=== PATIENT | male | born 1995 | race Caucasian/White ===

== ENCOUNTER 2017-06-18 00:58 | Inpatient (IN) | payer BC ==
[~2017-06-18] VITALS: Ht 185.4 cm; Wt 74.9 kg
[2017-06-18] VITALS (45 sets, daily range): BP systolic 99–146; BP diastolic 51–88; PULSE 88–111; TEMP 36.8–37.6; O2SAT 91–100; Ht 185.4 cm; Wt 74.9 kg
[~2017-06-18 00:58] MED LIST: CHLO5CAP19 PO; FLV1 PO; THM100 PO
[2017-06-18] MEDS ORDERED: LORAZEPAM 2 MG/ML 1 ML VIAL IM STA (01:23)
[2017-06-18] MEDS ORDERED: SODIUM CHLORIDE 0.9% 1000ML 1,000 ML IV STA ×2 (01:23→03:03)
[2017-06-18] MEDS ORDERED: HALOPERIDOL LACTATE 5 MG/ML 1 ML VIAL IM STA (01:23)
[2017-06-18] MEDS ORDERED: MIDAZOLAM HCL 5 MG/ML 1 ML VIAL IM STA ×2 (01:23)
[2017-06-18 01:40] LABS: BASO % 0.3 %; BASO ABS # 0.04 K/uL (0-0.2); EOS % 0.3 %; EOS ABS # 0.04 K/uL (0-0.5); HEMATOCRIT 42.5 % (42-52); LYMPH % 12.5 %; LYMPH ABS # 1.95 K/uL (1.2-3.4); MEAN CELL VOLUME 92.6 fL (80-100); MEAN CORPUSCULAR HEMOGLOBIN 32.7 pg (25-34); MEAN CORPUSCULAR HGB CONC 35.3 g/dl (32-36); MONO % 6.8 %; MONO ABS # 1.06 K/uL (0.11-0.59); NEUT % 78.8 %; NEUT ABS # 12.33 K/uL (1.4-6.5); PLATELET COUNT 292 K/uL (130-400); RED CELL DISTRIBUTION WIDTH CV 12.5 % (11.5-14.5); RED CELL DISTRIBUTION WIDTH SD 42.4 fL (36.4-46.3); WHITE BLOOD COUNT 15.62 K/uL (4.8-10.8)
[2017-06-18 01:57] LABS: ALBUMIN 4.3 gm/dl (3.4-5.0); ALT/SGPT 32 U/L (12-78); AST/SGOT 39 U/L (15-37); BLOOD UREA NITROGEN 11 mg/dl (7-18); CALCIUM 8.7 mg/dl (8.5-10.1); CARBON DIOXIDE 13 mmol/L (21-32); CREATININE 1.97 mg/dl (0.60-1.40); GLUCOSE 64 mg/dl (70-99); POTASSIUM 3.4 mmol/L (3.5-5.1); SODIUM 139 mmol/L (136-145)
[2017-06-18 02:08] LABS: ALKALINE PHOSPHATASE 114 U/L (45-117); TOTAL PROTEIN 8.1 gm/dl (6.4-8.2)
[2017-06-18] MEDS ORDERED: LORAZEPAM 2 MG/ML 1 ML VIAL IV STA (03:02)
[2017-06-18] MEDS ORDERED: ONDANSETRON INJ 2 MG/ML 2 ML VIAL IV PRN (03:15)
[2017-06-18] MEDS ORDERED: MAGNESIUM HYDROXIDE SUSP 30 ML UDC PO PRN (03:15)
[2017-06-18] MEDS ORDERED: ALUMINUM/MAGNESIUM/SIMETH (MAALOX MAX) 30 ML UDC PO PRN (03:15)
[2017-06-18] MEDS ORDERED: ACETAMINOPHEN 325 MG TAB PO PRN (03:15)
[2017-06-18] MEDS ORDERED: LORAZEPAM 2 MG/ML 1 ML VIAL IV PRN (03:15)
[2017-06-18] MEDS ORDERED: POLYETHYLENE (MIRALAX) 17 GM PACK PO PRN (03:15)
--- NOTE | 2017-06-18 03:18 | History and Physical ---
History & Physical Date & Time of Service: Jun 18, 2017 at 03:14 Chief Complaint: ETOH Primary Care Physician: No Doctor, Assigned History of Present Illness Source: hospital records 21 y/o M with a long-term history of ETOH abuse. The pt had been wandering the downtown in an agitated and disoriented state. An unknown republican alerted the police. The pt engaged in combat with several officers before being subdues and transported to the hospital against his will. While in the ER he remained combative and received 10mg of Midazolam and 10mg of Haldol were not entirely effective. He was placed in soft restraints. His oxygen saturation fell below 90% following a second dose of Midazolam. HIs continued agitation and borderline oxygenation lead to a decision to intubate. The pt was appropriately sedated and intubated without complication. He was placed on Propofol and transported to the ICU. He could not provide any reliable information, although he had apparently mentioned to the ER attending that he had smoked synthetic marijuana in addition to drinking alcohol and possibly snorting his Wellbutrin. Initial labs are notable for leukocytosis, SHARDA and an elevated CK. Past Medical/Surgical History 1) ETOH abuse since age 18 2) Seizures associated with ETOH withdrawal 3) History of delirium tremens 4) Depression Family History Patient reports no known family medical history. Cannot obtain Social History Per prior social history 2017: Began drinking consistently at age 18 and excessively approximately 1 year ago. Drinks at least 2 six packs of beer daily. Denied additional drug use, however, prior UDS indicated MDMA and THC use. 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 Smoking Status: Never Smoker Drug Use: marijuana, other Marital Status: single Housing status: lives with friends Occupational Status: [employer] student Allergies Coded Allergies: No Known Allergies (Unverified , 03/13/16) Home Medications Unable to Obtain Active Prescriptions or Reported Meds Review of Systems Cannot obtain Physical Exam Vital Signs Date Time Temp Pulse Resp B/P (MAP) Pulse Ox O2 Delivery O2 Flow Rate FiO2 06/18/17 02:15 109 24 107/58 98 Nasal Cannula 2.0 06/18/17 02:00 115 28 117/66 98 Nasal Cannula 2.0 06/18/17 01:45 36.6 111 28 102/48 98 Nasal Cannula 2.0 06/18/17 01:30 110 24 95/55 98 Nasal Cannula 2.0 06/18/17 01:28 112 24 116/47 97 Nasal Cannula 2.0 06/18/17 01:24 38.7 113 24 100/50 97 Room Air 06/18/17 01:17 123 24 95 Room Air 06/18/17 01:14 133 24 120/76 94 Room Air 06/18/17 01:09 142 28 95 Room Air 06/18/17 01:04 38.8 145 26 133/89 94 Room Air 06/18/17 01:04 94 06/18/17 00:58 28 Room Air General Appearance: + pertinent finding (Agitated young male who is sweating profulsely) Head: + pertinent finding (Abrasions to R side of face) Eyes: + pertinent finding (pupils are equal) Neck: + pertinent finding (No JVD - could not assess for neck stiffness) Respiratory/Chest: + pertinent finding (Could not complete a respiratory exam prior to uintubation as pt would not cooperate) Cardiovascular: regular rate, rhythm, no edema, no gallop Abdomen/GI: normal bowel sounds, non tender, soft Back: normal inspection Extremities/Musculoskelatal: normal inspection, normal capillary refill, no pedal edema Neurologic/Psych: + pertinent finding (Dosoriented, restless, combative - moving all extremities and can occasionall aswer questions) Skin: normal color Diagnostics Laboratory Results Results Past 24 Hours Test 06/18/17 01:22 06/18/17 01:26 Range/Units White Blood Count 15.62 4.8-10.8 K/uL Red Blood Count 4.59 4.7-6.1 M/uL Hemoglobin 15.0 14.0-18.0 g/dL Hematocrit 42.5 42-52 % Mean Corpuscular Volume 92.6 80-100 fL Mean Corpuscular Hemoglobin 32.7 25-34 pg Mean Corpuscular Hemoglobin Concent 35.3 32-36 g/dl Platelet Count 292 130-400 K/uL Mean Platelet Volume 10.0 7.4-10.4 fL Neutrophils (%) (Auto) 78.8 % Lymphocytes (%) (Auto) 12.5 % Monocytes (%) (Auto) 6.8 % Eosinophils (%) (Auto) 0.3 % Basophils (%) (Auto) 0.3 % Neutrophils # (Auto) 12.33 1.4-6.5 K/uL Lymphocytes # (Auto) 1.95 1.2-3.4 K/uL Monocytes # (Auto) 1.06 0.11-0.59 K/uL Eosinophils # (Auto) 0.04 0-0.5 K/uL Basophils # (Auto) 0.04 0-0.2 K/uL RDW Standard Deviation 42.4 36.4-46.3 fL RDW Coefficient of Variation 12.5 11.5-14.5 % Immature Granulocyte % (Auto) 1.3 % Immature Granulocyte # (Auto) 0.20 0.00-0.02 K/uL Sodium Level 139 136-145 mmol/L Potassium Level 3.4 3.5-5.1 mmol/L Chloride Level 104 98-107 mmol/L Carbon Dioxide Level 13 21-32 mmol/L Anion Gap 22.0 3-11 mmol/L Blood Urea Nitrogen 11 7-18 mg/dl Creatinine 1.97 0.60-1.40 mg/dl Estimated GFR () 54.3 Estimated GFR (Non- 46.9 BUN/Creatinine Ratio 5.5 10-20 Random Glucose 64 70-99 mg/dl Calcium Level 8.7 8.5-10.1 mg/dl Total Bilirubin 0.5 0.2-1 mg/dl Direct Bilirubin 0.2 0-0.2 mg/dl Aspartate Amino Transf (AST/SGOT) 39 15-37 U/L Alanine Aminotransferase (ALT/SGPT) 32 12-78 U/L Alkaline Phosphatase 114 45-117 U/L Total Creatine Kinase 560 39-308 U/L Total Protein 8.1 6.4-8.2 gm/dl Albumin 4.3 3.4-5.0 gm/dl Thyroid Stimulating Hormone (TSH) 2.290 0.300-4.500 uIu/ml Salicylates Level 3.1 2.8-20 mg/dl Acetaminophen Level < 2 10-30 ug/ml Ethyl Alcohol mg/dL 114.0 0-3 mg/dl Impression Assessment and Plan 21 y/o M with a long-term history of ETOH abuse. The pt had been wandering the downtown in an agitated and disoriented state. An unknown republican alerted the police. The pt engaged in combat with several officers before being subdues and transported to the hospital against his will. While in the ER he remained combative and received 10mg of Midazolam and 10mg of Haldol were not entirely effective. He was placed in soft restraints. His oxygen saturation fell below 90% following a second dose of Midazolam. HIs continued agitation and borderline oxygenation lead to a decision to intubate. The pt was appropriately sedated and intubated without complication. He was placed on Propofol and transported to the ICU. He could not provide any reliable information, although he had apparently mentioned to the ER attending that he had smoked synthetic marijuana in addition to drinking alcohol and possibly snorting his Wellbutrin. Initial labs are notable for leukocytosis, SHARDA and an elevated CK. 1) Intoxication/combative behavior - possibly synthetic THC in combination with ETOH - pt is sedated and intubated. IVF and PRN Ativan provided although he is sedated with Propofol. We would recommend he remain sedated for several hours due to his violent behavior and possibly evolving rhabdo. 2) ETOH abuse - history of withdrawal seizures - Currently sedated - PRN Ativan provided. IVF with Glu, Daily Thiamine and Folate ordered. 3) SHARDA - likely prerenal - IVF - repeat BMP in a few hrs 4) Elevated CK - will trend, IVF provided 5) Depression - continue Wellbutrin when awake Full code - SCDs due to trauma Total time for this admit including review of labs, meds, records - discussion with ER atttending and nurse sergeant of officers - inc critical care time - 38 min Resuscitation Status VTE Prophylaxis Will order VTE Prophylaxis: Yes
[2017-06-18] MEDS ORDERED: THIAMINE HCL 100 MG/ML 2 ML VIAL IM STA (03:20)
[2017-06-18] MEDS ORDERED: RAPID SEQUENCE INDUCTION BAG ONE (03:44)
[2017-06-18] MEDS ORDERED: PROPOFOL IV EMULSION 10 MG/ML 100 ML VIAL IV ONE ×2 (03:55→08:03)
[2017-06-18] MEDS ORDERED: THIAMINE HCL INJ 100 MG in SYRINGE 9 ML IV ONE (04:00)
[2017-06-18] MEDS ORDERED: ICU PROTOCOL FOR HYPERGLYCEMIA PRN (04:15)
--- NOTE | 2017-06-18 04:52 | Critical Care Consultation ---
Critical Care Consultation Date of Consultation: Jun 18, 2017. Attending Physician: Reason for Consultation: Delirium, acute intoxication History of Present Illness 21y/oM with hx of fdc alcohol (since age 18) and marijuana abuse, delirium tremens and alcohol withdrawal seizures admitted for delirium and acute intoxication. Pt was [place] agitated and [place]oriented in [place] and police was called. He was combative with several police officers and was brought to the hospital against his will. Pt reported snorting wellbutrin, taking a bunch of Xanax and taking synthetic marijuana. Pt was noted to be hallucinating. During ICU team interview: Pt was cooperative and not combative. He reported mild sob and expressed need for water; denied suicide attempt and reported " just wanted to relax". During intubation, asked for his dad not to be contacted as that would violate HIPPA. ED course: He remained extremely agitated/combative and was restrained with wrist and ankle restraints. Alcohol level was found to be 114. Other pertinent labs: CK 560, WBC 15.6, Cr 1.97, Bicarb 13 with AG of 22. He received Ativan 2mg x 2; Versed 5mg IM x 2; Haldol 10mg IM; 1L of NS bolus. NS was also started at 200mls/hr and switched to NS with D5 and 20meq of KCL for glucose of 64 which improved to 73 prior to D5 administration. He was intubated with etomidate , rocuronium and started on propofol sedation at 5mcg/kg/min prior to ICU transfer. Past Medical/Surgical History Hx of alcohol abuse since age 18 Delirium tremens Alcohol withdrawal seizures Marijuana abuse Family History Patient reports no known family medical history. Social History Smoking Status: Never Smoker Drug Use: marijuana, other Marital Status: single Occupation Status: [email or web address] student Allergies Coded Allergies: No Known Allergies (Unverified , 03/13/16) Home Medications Unable to Obtain Active Prescriptions or Reported Meds Current Inpatient Medications Current Inpatient Medications Medications (Trade) Dose Ordered Sig/Sophia Route Start Time Stop Time Status Last Admin Dose Admin Sodium Chloride 1,000 ml @ 200 mls/hr Q5H STAT IV 06/18/17 03:03 06/18/17 08:02 06/18/17 03:21 200 MLS/HR Acetaminophen (Tylenol Tab) 650 mg Q4H PRN PO 06/18/17 03:15 07/18/17 03:14 Al Hydrox/Mg Hydrox/Simethicone (Maalox Max Susp) 15 ml Q4H PRN PO 06/18/17 03:15 07/18/17 03:14 Magnesium Hydroxide (Milk Of Magnesia Susp) 30 ml Q12H PRN PO 06/18/17 03:15 07/18/17 03:14 Ondansetron HCl (Zofran Inj) 4 mg Q6H PRN IV 06/18/17 03:15 07/18/17 03:14 Polyethylene (Miralax Powder Packet) 17 gm DAILY PRN PO 06/18/17 03:15 07/18/17 03:14 Potassium Chloride/Dextrose/ Sod Cl 1,000 ml @ 200 mls/hr Q5H IV 06/18/17 03:15 07/18/17 03:14 UNV Lorazepam (Ativan Inj) 2 mg Q2H PRN IV 06/18/17 03:15 07/18/17 03:14 Thiamine HCl 100 mg/Syringe 10 ml @ 2 mls/min QAM IV 06/18/17 09:00 07/18/17 08:59 UNV Folic Acid 1 mg/ Syringe 10 ml @ 5 mls/min QAM IV 06/18/17 09:00 07/18/17 08:59 UNV Pantoprazole Sodium 40 mg/ Syringe 10 ml @ 5 mls/min DAILY IV 06/18/17 09:00 07/18/17 08:59 UNV Miscellaneous Information (Icu Protocol For Hyperglycemia) 1 ea PRN PRN N/A 06/18/17 04:15 06/20/17 04:14 UNV Multivitamins (Multivitamin Tab) 1 tab QAM PO 06/18/17 09:00 07/18/17 08:59 UNV Review of Systems Limited due to pt MS Constitutional: + sweats Respiratory: + shortness of breath Psychiatric: + problem reported (denied SI) Physical Exam Date Time Temp Pulse Resp B/P (MAP) Pulse Ox O2 Delivery O2 Flow Rate FiO2 06/18/17 04:02 104 20 131/75 99 Mechanical Ventilator 15.0 06/18/17 03:55 99 06/18/17 03:49 123 22 126/78 98 Nasal Cannula 2.0 06/18/17 03:30 112 24 111/73 98 Nasal Cannula 2.0 06/18/17 03:00 119 24 112/57 95 Nasal Cannula 2.0 06/18/17 02:45 116 24 115/70 97 Nasal Cannula 2.0 06/18/17 02:30 115 22 108/67 97 Nasal Cannula 2.0 06/18/17 02:15 109 24 107/58 98 Nasal Cannula 2.0 06/18/17 02:00 115 28 117/66 98 Nasal Cannula 2.0 06/18/17 01:45 36.6 111 28 102/48 98 Nasal Cannula 2.0 06/18/17 01:30 110 24 95/55 98 Nasal Cannula 2.0 06/18/17 01:28 112 24 116/47 97 Nasal Cannula 2.0 06/18/17 01:24 38.7 113 24 100/50 97 Room Air 06/18/17 01:20 125 06/18/17 01:17 123 24 95 Room Air 06/18/17 01:14 133 24 120/76 94 Room Air 06/18/17 01:09 142 28 95 Room Air 06/18/17 01:04 38.8 145 26 133/89 94 Room Air 06/18/17 01:04 94 06/18/17 00:58 28 Room Air General Appearance: other (diaphoretic, agitated, combative) Eyes: no discharge, conjunctivae normal ENT: other (crusted blood b/l nares) Neck: normal range of motion, no lymphadenopathy Respiratory: respiratory distress (excessive use of accessory muscles of respiration (chest and abdomen)), rhonchi, wheezing (diffuse), other (coarse breath sounds) Cardiovasular: normal S1S2, no murmur, other (tachycardic with regular rhythm) Abdomen: non tender, normal bowel sounds, no organomegaly Back: normal inspection Upper Extremities: no edema Lower Extremities: no edema, other (multiple abrasions on knees, legs and thigh region; b/l feet excoriation) Neuro: alert, other (hallucinating and delirius; arousable to tactile and vocal stimuli prior to sedation) Psychiatric: no suicidal ideation Laboratory Results Last 24 Hours Test 06/18/17 01:22 06/18/17 04:20 White Blood Count 15.62 K/uL Red Blood Count 4.59 M/uL Hemoglobin 15.0 g/dL Hematocrit 42.5 % Mean Corpuscular Volume 92.6 fL Mean Corpuscular Hemoglobin 32.7 pg Mean Corpuscular Hemoglobin Concent 35.3 g/dl Platelet Count 292 K/uL Mean Platelet Volume 10.0 fL Neutrophils (%) (Auto) 78.8 % Lymphocytes (%) (Auto) 12.5 % Monocytes (%) (Auto) 6.8 % Eosinophils (%) (Auto) 0.3 % Basophils (%) (Auto) 0.3 % Neutrophils # (Auto) 12.33 K/uL Lymphocytes # (Auto) 1.95 K/uL Monocytes # (Auto) 1.06 K/uL Eosinophils # (Auto) 0.04 K/uL Basophils # (Auto) 0.04 K/uL RDW Standard Deviation 42.4 fL RDW Coefficient of Variation 12.5 % Immature Granulocyte % (Auto) 1.3 % Immature Granulocyte # (Auto) 0.20 K/uL Sodium Level 139 mmol/L Potassium Level 3.4 mmol/L Chloride Level 104 mmol/L Carbon Dioxide Level 13 mmol/L Anion Gap 22.0 mmol/L Blood Urea Nitrogen 11 mg/dl Creatinine 1.97 mg/dl Estimated GFR () 54.3 Estimated GFR (Non- 46.9 BUN/Creatinine Ratio 5.5 Random Glucose 64 mg/dl Calcium Level 8.7 mg/dl Magnesium Level 3.1 mg/dl Total Bilirubin 0.5 mg/dl Direct Bilirubin 0.2 mg/dl Aspartate Amino Transf (AST/SGOT) 39 U/L Alanine Aminotransferase (ALT/SGPT) 32 U/L Alkaline Phosphatase 114 U/L Total Creatine Kinase 560 U/L Total Protein 8.1 gm/dl Albumin 4.3 gm/dl Thyroid Stimulating Hormone (TSH) 2.290 uIu/ml Salicylates Level 3.1 mg/dl Acetaminophen Level < 2 ug/ml Ethyl Alcohol mg/dL 114.0 mg/dl Assessment & Plan 21y/oM with hx of fdc alcohol (since age 18) and marijuana abuse, delirium tremens and alcohol withdrawal seizures admitted for delirium and acute intoxication: snorted Wellbutrin, took a bunch of Xanax and synthetic marijuana for relaxation. Denied suicidal ideation. Etoh level was 114. Tox screen pending. Currently sedated with propofol s/p intubation with etomidate and rocuronium and on volume control mechanical ventilation. On IVF for CK of 560. PLAN: Neuro: Pt was hallucinating and combative in the setting of acute intoxication. Currently sedated on propofol. Goal RASS score of -1 while intubated. On propofol 25 mcg/kg/min Started Versed gtt 4mg/hr Received Versed 5mg IV PAIN: tylenol 650mg Q4H PRN AGITATION: Ativan 2mg IV Q2H CV: HD stable with mild tachycardia Ordered troponin Ordered EKG Pulm: Intubated for airway protection and on mechanical ventilation CXR: concern for multiple rib fractures; read pending Concern for mixed respiratory and metabolic acidosis with AG of 22 Ordered serum Osm On VC at rate of 14, Tv of 600ml, Peep 5 and FiO2 of 40% Renal: SHARDA with Cr of 1.97; Concern for myopathy CK 560 On IVF - NS, D5 with 20 KCL at 200mls/hr Repeat PRP and CK at 0900 ID: No concern for aspiration pneumonia given lack of emesis and RLL infiltrate on CXR. WBC 15.6 with immature granulocytes and elevated neutrophils Repeat CBC this AM Empiric antibiotics not initiated at this time Endocrine: BSG 64 on BMP improved to 73 prior to D5 administration Concern for hypoglycemia On D5 with IVF Glucose checks and insulin per protocol Heme: H/H 15/42.[address] No concern for acute bleeding Electrolytes: Hypokalemia and hypermagnesemia (K 3.4 and Mag 3.1) Added 20meq KCL to IVF Repeat electrolytes at 0900 Nutrition/GI: NPO IVF NS, D5 with 20 KCL at 200mls/hr Zofran 4mg IV Q6H PRN Pantoprazole 40mg IV daily Thiamine IV Folic Acid IV Multivitamin PO IV access: peripheral only DVT prophylaxis: SCDs CCT: 60 minutes independent of any procedures Thank you for including us in the care of this patient. Please refer to Dr. Martins's addendum for further recommendations. Resident Physician Supervision Note: Dr. Bowman was resident physician during care of patient. I separately evaluated patient and did history and exam. I discussed the case with the resident and generally agree with the findings and plan. Underlying acute medical issue likely agitated delirium secondary to polysubstance abuse this time. AK I significantly improved with fluid administration, will continue repeat CPK to observe for jessa, mildly concern for increased risk of rhabdomyolysis given the history as well as positive NMDA receptor, continued checking for hyperthermia associated with NMDA use which increases risk for rhabdomyolysis. Given history of seizures secondary to alcohol withdrawal and acute alcohol intoxication will start empiric gabapentin and Librium via alcohol withdrawal protocol Patient to remain intubated at this time as he is allowed to continue to metabolize the polysubstances. I have personally spent 60 minutes of critical care time in the direct management of this patient. This is a life/limb threatening event. This includes time spent evaluating patient, direct bedside care, chart review, placing orders, interpretation of diagnostic studies, discussion with consultants, patient, and/or family members regarding treatment decisions, as well as other required patient management activities. This time is exclusive of all separately billable procedures, and teaching time and separate from and in addition to any other critical care service time. Documented By: Venu Martins DO
[2017-06-18] MEDS ORDERED: MIDAZOLAM HCL 5 MG/ML 1 ML VIAL IV STA (05:18)
[2017-06-18] MEDS ORDERED: MIDAZOLAM 125MG/250ML D5W 250 ML IV PRN (05:32)
[2017-06-18] MEDS: D5NSS + 20MEQ KCL 1,000 ML IV SCH ×2 (05:34→10:03)
[2017-06-18] MEDS ORDERED: MIDAZOLAM 125MG/250ML D5W IV ONE (05:35)
[2017-06-18] MEDS ORDERED: FENTANYL 1250MCG/250ML NSS 250 ML IV PRN (05:52)
[2017-06-18] MEDS ORDERED: FENTANYL CITRATE 1250MCG/250ML NSS ONE (05:56)
--- NOTE | 2017-06-18 05:58 | EMERGENCY ROOM VISIT NOTE ---
History Report prepared by Elijah: Danielle Madsen Under the Supervision of: Dr. Makayla Rodrigues D.O. First contact with patient: 01:11 Stated Complaint: ETOH History of Present Illness The patient is a 21 year old male who presents to the Emergency Room with complaints of an episode of alcohol overdose occurring prior to arrival. The patient states that he snorted Wellbutrin, took a bunch of Xanax, and did synthetic marijuana. The patient states that he is hallucinating. Per nursing staff, the patient was found on [facility]. She reports that upon police arrival he was fighting them by spitting, biting, and screaming profanities. She reports that it is unknown who called police in the first place. Source of History: patient, nursing staff Onset: prior to arrival Position: other (global) Quality: other (overdose) Timing: other (episode) Note: The patient complains of hallucinating. Review of Systems See HPI for pertinent positives & negatives. A total of 10 systems reviewed and were otherwise negative. Past Medical & Surgical Medical Problems: (1) Abrasion of left leg (2) Alcohol intoxication (3) Alcohol overdose (4) Combative behavior (5) Psychosis Family History Patient reports no known family medical history. Social History Smoking Status: Never Smoker Alcohol Use: heavy Drug Use: marijuana, other Marital Status: single Current/Historical Medications Unable to Obtain Active Prescriptions or Reported Meds Allergies Coded Allergies: No Known Allergies (Unverified , 03/13/16) Physical Exam Vital Signs Date Time Temp Pulse Resp B/P (MAP) Pulse Ox O2 Delivery O2 Flow Rate FiO2 06/18/17 04:02 104 20 131/75 99 Mechanical Ventilator 15.0 06/18/17 03:55 99 06/18/17 03:49 123 22 126/78 98 Nasal Cannula 2.0 06/18/17 03:30 112 24 111/73 98 Nasal Cannula 2.0 06/18/17 03:00 119 24 112/57 95 Nasal Cannula 2.0 06/18/17 02:45 116 24 115/70 97 Nasal Cannula 2.0 06/18/17 02:30 115 22 108/67 97 Nasal Cannula 2.0 06/18/17 02:15 109 24 107/58 98 Nasal Cannula 2.0 06/18/17 02:00 115 28 117/66 98 Nasal Cannula 2.0 06/18/17 01:45 36.6 111 28 102/48 98 Nasal Cannula 2.0 06/18/17 01:30 110 24 95/55 98 Nasal Cannula 2.0 06/18/17 01:28 112 24 116/47 97 Nasal Cannula 2.0 06/18/17 01:24 38.7 113 24 100/50 97 Room Air 06/18/17 01:20 125 06/18/17 01:17 123 24 95 Room Air 06/18/17 01:14 133 24 120/76 94 Room Air 06/18/17 01:09 142 28 95 Room Air 06/18/17 01:04 38.8 145 26 133/89 94 Room Air 06/18/17 01:04 94 06/18/17 00:58 28 Room Air Physical Exam General: Hallucinating, combative, agitated, fighting eight police and security guards. HEENT: Head - normocephalic. Contusion over right lateral eyebrow. Pupils are equal, round, and reactive to light. Extraocular eye muscles are intact, and sclera are anicteric. Nose - moist nasal mucosa without discharge. Powdered yellowish substance in both nares. Mouth - moist buccal mucosa. Small amount of blood coming from his mouth. Oropharynx is nonerythematous and there is no tonsillar exudate or edema noted. Neck: Supple; no JVD, nuchal rigidity, cervical lymphadenopathy. Heart: Tachycardic rate and regular rhythm. There is a normal S1 and S2 with no murmurs, clicks, or gallops appreciated. Lungs: Clear to auscultation bilaterally with no wheezes, rales, or rhonchi. Abdomen: Soft, completely nontender, nondistended, with good bowel sounds. There are no palpable pulsatile masses or hepatosplenomegaly. There is no guarding, rigidity, or rebound noted. Extremities: No evidence of cyanosis, clubbing, or edema. There are easily palpable peripheral pulses. Skin: warm with good turgor and no rashes. Diaphoretic. Back; superficial abrasions to the back Medical Decision & Procedures ER Provider Diagnostic Interpretation: CHEST X-RAY POST INTUBATION: The results were interpreted by me. Endotracheal tube is about 4 cm about the casey. Laboratory Results 06/18/17 01:22 Red Blood Count 4.59, Mean Corpuscular Volume 92.6, Mean Corpuscular Hemoglobin 32.7, Mean Corpuscular Hemoglobin Concent 35.3, Mean Platelet Volume 10.0, Neutrophils (%) (Auto) 78.8, Lymphocytes (%) (Auto) 12.5, Monocytes (%) (Auto) 6.8, Eosinophils (%) (Auto) 0.3, Basophils (%) (Auto) 0.3, Neutrophils # (Auto) 12.33, Lymphocytes # (Auto) 1.95, Monocytes # (Auto) 1.06, Eosinophils # (Auto) 0.04, Basophils # (Auto) 0.04 Test 06/18/17 01:22 06/18/17 03:35 White Blood Count 15.62 K/uL (4.8-10.8) Red Blood Count 4.59 M/uL (4.7-6.1) Hemoglobin 15.0 g/dL (14.0-18.0) Hematocrit 42.5 % (42-52) Mean Corpuscular Volume 92.6 fL (80-100) Mean Corpuscular Hemoglobin 32.7 pg (25-34) Mean Corpuscular Hemoglobin Concent 35.3 g/dl (32-36) Platelet Count 292 K/uL (130-400) Mean Platelet Volume 10.0 fL (7.4-10.4) Neutrophils (%) (Auto) 78.8 % Lymphocytes (%) (Auto) 12.5 % Monocytes (%) (Auto) 6.8 % Eosinophils (%) (Auto) 0.3 % Basophils (%) (Auto) 0.3 % Neutrophils # (Auto) 12.33 K/uL (1.4-6.5) Lymphocytes # (Auto) 1.95 K/uL (1.2-3.4) Monocytes # (Auto) 1.06 K/uL (0.11-0.59) Eosinophils # (Auto) 0.04 K/uL (0-0.5) Basophils # (Auto) 0.04 K/uL (0-0.2) RDW Standard Deviation 42.4 fL (36.4-46.3) RDW Coefficient of Variation 12.5 % (11.5-14.5) Immature Granulocyte % (Auto) 1.3 % Immature Granulocyte # (Auto) 0.20 K/uL (0.00-0.02) Magnesium Level 3.1 mg/dl (1.8-2.4) Direct Bilirubin 0.2 mg/dl (0-0.2) Thyroid Stimulating Hormone (TSH) 2.290 uIu/ml (0.300-4.500) Salicylates Level 3.1 mg/dl (2.8-20) Acetaminophen Level < 2 ug/ml (10-30) Ethyl Alcohol mg/dL 114.0 mg/dl (0-3) Bedside Glucose 73 mg/dl (70-99) Laboratory results per my review. Medications Administered Medications (Trade) Dose Ordered Sig/Sophia Route Start Time Stop Time Status Last Admin Dose Admin Sodium Chloride 1,000 ml @ 999 mls/hr Q1H1M STAT IV 06/18/17 01:23 06/18/17 02:23 DC 06/18/17 02:14 999 MLS/HR Lorazepam (Ativan Inj) 2 mg NOW STAT IM 06/18/17 01:23 06/18/17 01:27 DC 06/18/17 02:15 2 MG Haloperidol Lactate (Haldol Inj) 10 mg NOW STAT IM 06/18/17 01:23 06/18/17 01:27 DC 06/18/17 02:16 10 MG Midazolam HCl (Versed Inj) 5 mg NOW STAT IM 06/18/17 01:23 06/18/17 01:27 DC 06/18/17 02:17 5 MG Midazolam HCl (Versed Inj) 5 mg NOW STAT IM 06/18/17 01:23 06/18/17 01:27 DC 06/18/17 02:17 5 MG Lorazepam (Ativan Inj) 2 mg NOW STAT IV 06/18/17 03:02 06/18/17 03:04 DC 06/18/17 03:21 2 MG Sodium Chloride 1,000 ml @ 200 mls/hr Q5H STAT IV 06/18/17 03:03 06/18/17 05:31 DC 06/18/17 03:21 200 MLS/HR Thiamine HCl 100 mg/Syringe 10 ml @ 2 mls/min NOW ONCE IV 06/18/17 04:00 06/18/17 04:04 DC 06/18/17 04:00 2 MLS/MIN Propofol (Diprivan Iv Emulsion 100ml Vial) 1 dose STK-MED ONCE IV 06/18/17 03:55 06/18/17 03:56 DC 06/18/17 03:58 1 DOSE Procedure 0058: Ordered Haldol Inj 10 mg IM. 0100: Ordered Ativan Inj 2 mg IM. 0104: Ordered Versed Inj 5 mg IM. 0111: Ordered Versed 5 mg IM. 0123: Ordered NSS 1000 ml @ 999 mls/hr IV. 0302: Ordered Ativan Inj 2 mg IV. 0345: Ordered Etomidate 30 mg IV, Rocuronium 70 mg IV. 0355: Ordered Propofol Drip 1 dose IV. Endotracheal Intubation Indication: Altered Metal Status The patient was on a nasal cannula prior to the procedure. Suction, airway equipment, RSI drugs, respiratory equipment, and appropriate personnel were prepared prior to the initiation of the procedure. A time out was taken. Induction was performed with 30 mg Etomidate and 70 mg Rocuronium. After observing the clinical benefit of the medications, the airway was easily visualized utilizing a glide scope. A 7.5 size ETT tube was placed atraumatically to 24 cm using standard technique. The cuff inflated without signs of malfunction. There were bilateral breath sounds, positive colormetric change, no gastric sounds, a good capnography waveform, and post procedure pulse oximetry was 100%. Post intubation sedation and paralysis was administered using Propofol. There were no complications. ED Course 0055: Past medical records reviewed. The patient was evaluated in room A12B. A complete history and physical exam was performed. Upon my initial evaluation of the patient, he was being restrained by 8 security guards and police officers. He was combative, agitated and screaming expletives. 0057: Four-point leather restraints were placed on the patient 0058: Ordered Haldol Inj 10 mg IM. The patient continued to struggle and appear to be suffering from excited delirium. We were finally able to attach a pulse oximeter cord and pallet repairer leads. 0100: Ordered Ativan Inj 2 mg IM. 0104: The patient seemed only slightly more relaxed and still was a danger to himself and others. I ordered Versed Inj 5 mg IM. 0111: Once again, the patient was extremely agitated and struggling against his restraints and with security. I ordered Versed 5 mg IM. We are finally able to get a blood pressure and rectal temperature. The patient was hyperthermic. 0123: Ordered NSS 1000 ml @ 999 mls/hr IV. 0205: The patient was somewhat sedated at this time. He was protecting his own airway 0302: Nursing staff made me aware that the patient was becoming agitated again. I ordered Ativan Inj 2 mg IV. 0303: I discussed the patient's case with Elena NUGENT Market Research Analyst. 0324: Discussed the patient's case with Dr. Cherelle JOHNSON Hospitalist. The patient will be evaluated for further management. 0345: The patient was evaluated by the hospitalist and the PA from the ICU and they requested that the patient be sedated and intubated. Ordered Etomidate 30 mg IV, Rocuronium 70 mg IV. 0355: Ordered Propofol Drip 1 dose IV. Medical Decision The patient is a 21 year old male who presents to the Emergency Room with complaints of an episode of alcohol overdose with severe agitation occurring prior to arrival. Differential diagnoses include alcohol intoxication, drug overdose, hypoglycemia , head injury, excited delirium, malignant hyperthermia. LABS: Salicylate level 3.1 Tylenol less than 2 Alcohol 114 Total CKA 560 TSH 2.2 Glucose 64 Creatine 1.9 White count 15.6 Stable H&H This is a 21-year-old male patient presents to the emergency department initially thought to be an alcohol overdose. He then went on to explain that he use synthetic marijuana and snorted Wellbutrin and took Xanax. The patient had severe combativeness and agitation. His presentation was consistent with excited delirium. Patient received multiple sedatives along with Haldol and had no significant improvement in his symptoms for quite some time. He did seem to calm down for a short period of time but then was struggling against restraints. At that point, he was becoming more agitated and the decision was made to sedate him and placed him on a ventilator for ICU admission. Medication Reconcilliation Current Medication List: was personally reviewed by me Blood Pressure Screening Patient's blood pressure: Normal blood pressure Will be further monitored by the hospitalist. Consults Time Called: [phone] Consulting Physician: Elena NUGENT Market Research Analyst Returned Call: [phone] I discussed the patient's case with Elena NUGENT Market Research Analyst. Additional Consults: Time Called: 030 Consulted Physician: Dr. Cherelle JOHNSON Hospitalist Returned Call: [phone] Additional Comments: Discussed the patient's case with Dr. Cherelle Castro [facility] Hospitalist. The patient will be evaluated for further management. Impression Primary Impression: Polysubstance abuse Additional Impression: Delirium Critical Care I have personally spent greater than 120 minutes of critical care time in the direct management of this patient. This includes bedside care, interpretation of diagnostic studies, and testing, discussion with consultants, patient, and family members, and other required patient management activities. This 120 minutes is in excess of all separately billable procedures. Scribe Attestation The scribe's documentation has been prepared under my direction and personally reviewed by me in its entirety. I confirm that the note above accurately reflects all work, treatment, procedures, and medical decision making performed by me. Departure Information Dispostion Being Evaluated By Hospitalist Prescriptions Unable to Obtain Active Prescriptions or Reported Meds Referrals No Doctor, Assigned (PCP) Problem Qualifiers
[2017-06-18 06:09] LABS: ALBUMIN 3.7 gm/dl (3.4-5.0); ALT/SGPT 36 U/L (12-78); AST/SGOT 78 U/L (15-37); BLOOD UREA NITROGEN 14 mg/dl (7-18); CALCIUM 7.9 mg/dl (8.5-10.1); CARBON DIOXIDE 20 mmol/L (21-32); GLUCOSE 92 mg/dl (70-99); POTASSIUM 3.6 mmol/L (3.5-5.1); SODIUM 140 mmol/L (136-145)
[2017-06-18 06:25] LABS: ALKALINE PHOSPHATASE 90 U/L (45-117); PHOSPHORUS 4.8 mg/dl (2.5-4.9); TOTAL PROTEIN 6.6 gm/dl (6.4-8.2)
--- NOTE | 2017-06-18 07:32 | DIAGNOSTIC IMAGING REPORT ---
CHEST ONE VIEW PORTABLE HISTORY: 21 years-old Male ET tube placement acute respiratory failure COMPARISON: None available TECHNIQUE: Portable AP view of the chest FINDINGS: Endotracheal tube overlies the midline terminating 6.7 cm superior to the casey. Enteric tube courses below the diaphragm terminating within the left upper abdomen within the region of the gastric fundus. Cardiomediastinal and hilar silhouettes are within normal limits. There is no pneumothorax, pleural effusion, focal airspace consolidation or overt pulmonary edema. Bones of the chest appear grossly intact. IMPRESSION: Satisfactory positioning of endotracheal and enteric tubes as above. The above report was generated using voice recognition software. It may contain grammatical, syntax or spelling errors. Electronically signed by: Danyel Gross M.D. 06/18/2017 7:30 AM Dictated Date/Time: 06/18/2017 7:28 AM
[2017-06-18] MEDS: MULTIVITAMIN TAB PO SCH (07:47)
[2017-06-18] MEDS ORDERED: INFLUENZA VIRUS QUAD VACCINE 0.5 ML SYR IM. ONE (08:00)
[2017-06-18] MEDS ORDERED: INFLUENZA ADMINISTRATION CHARGE ONE (08:00)
[2017-06-18] MEDS: FoLIC ACID INJ 1 MG in SYRINGE 9.8 ML IV SCH (08:08)
[2017-06-18] MEDS ORDERED: PROPOFOL IV EMULSION 10 MG/ML 100 ML VIAL IV PRN (08:58)
[2017-06-18 09:18] LABS: BASO % 0.1 %; BASO ABS # 0.01 K/uL (0-0.2); EOS % 0.5 %; EOS ABS # 0.07 K/uL (0-0.5); HEMATOCRIT 34.6 % (42-52); HEMOGLOBIN 12.1 g/dL (14.0-18.0); IG# 0.06 K/uL (0.00-0.02); LYMPH % 20.7 %; LYMPH ABS # 2.96 K/uL (1.2-3.4); MEAN CELL VOLUME 92.3 fL (80-100); MEAN CORPUSCULAR HEMOGLOBIN 32.3 pg (25-34); MEAN PLATELET VOLUME 9.7 fL (7.4-10.4); MONO % 14.4 %; MONO ABS # 2.07 K/uL (0.11-0.59); NEUT % 63.9 %; NEUT ABS # 9.16 K/uL (1.4-6.5); PLATELET COUNT 184 K/uL (130-400); RED CELL DISTRIBUTION WIDTH CV 12.7 % (11.5-14.5); RED CELL DISTRIBUTION WIDTH SD 42.8 fL (36.4-46.3); WHITE BLOOD COUNT 14.33 K/uL (4.8-10.8)
[2017-06-18] MEDS ORDERED: GABAPENTIN 600 MG TAB PO SCH (10:00)
[2017-06-18] MEDS ORDERED: CHLORDIAZEPOXIDE 25 MG CAP PO SCH (10:00)
[2017-06-18] MEDS ORDERED: PANTOprazole INJ 40 MG in SYRINGE 0 ML IV SCH (11:00)
[2017-06-18] MEDS: CHLORDIAZEPOXIDE 50MG 1ST DOSE PO SCH ×3 (11:09→21:40)
--- NOTE | 2017-06-18 11:47 | Progress Note ---
Subjective Date of Service: Jun 18, 2017. Subjective Pt evaluation today including: conversation w/ patient, physical exam, chart review, lab review, review of studies, conversation w/ it solutions sales consultant, review of inpatient medication list Intubated, on IV fluid, sedation, afebrile, good urine output, not on NG tube feeding Problem List Medical Problems: (1) Alcohol withdrawal Status: Acute (2) Alcoholic intoxication Status: Acute (3) Alcoholic intoxication Status: Acute (4) Buttock abrasion Status: Acute (5) Delirium Status: Acute (6) Head injury Status: Acute (7) Leg abrasion Status: Acute (8) Polysubstance abuse Status: Acute (9) Polysubstance abuse Status: Acute (10) Tremor Status: Acute Review of Systems Constitutional: + problem reported (Not able to obtain because of sedated on the vent) Objective Vital Signs Date Time Temp Pulse Resp B/P (MAP) Pulse Ox O2 Delivery O2 Flow Rate FiO2 06/18/17 11:30 40 06/18/17 10:00 37.2 90 17 128/59 (82) 97 Mechanical Ventilator 50 06/18/17 08:00 96 Mechanical Ventilator 50 06/18/17 08:00 40 06/18/17 07:54 40 06/18/17 07:30 37.1 94 17 115/55 (75) 97 Mechanical Ventilator 50 06/18/17 05:58 98 17 102/51 (68) 97 06/18/17 05:54 40 06/18/17 05:47 105 0 116/69 (85) 95 06/18/17 05:31 99 15 114/59 (77) 97 06/18/17 05:30 99 16 97 06/18/17 05:17 104 21 137/87 (104) 97 06/18/17 05:04 36.8 98 18 136/82 98 Mechanical Ventilator 40 06/18/17 05:01 93 16 136/82 (100) 98 06/18/17 04:55 101 134/88 (103) 99 06/18/17 04:31 91 146/87 (106) 100 06/18/17 04:30 94 15 100 06/18/17 04:02 104 20 131/75 99 Mechanical Ventilator 15.0 06/18/17 03:55 99 06/18/17 03:49 123 22 126/78 98 Nasal Cannula 2.0 06/18/17 03:30 112 24 111/73 98 Nasal Cannula 2.0 06/18/17 03:00 119 24 112/57 95 Nasal Cannula 2.0 06/18/17 02:45 116 24 115/70 97 Nasal Cannula 2.0 06/18/17 02:30 115 22 108/67 97 Nasal Cannula 2.0 06/18/17 02:15 109 24 107/58 98 Nasal Cannula 2.0 06/18/17 02:00 115 28 117/66 98 Nasal Cannula 2.0 06/18/17 01:45 36.6 111 28 102/48 98 Nasal Cannula 2.0 06/18/17 01:30 110 24 95/55 98 Nasal Cannula 2.0 06/18/17 01:28 112 24 116/47 97 Nasal Cannula 2.0 06/18/17 01:24 38.7 113 24 100/50 97 Room Air 06/18/17 01:20 125 06/18/17 01:17 123 24 95 Room Air 06/18/17 01:14 133 24 120/76 94 Room Air 06/18/17 01:09 142 28 95 Room Air 06/18/17 01:04 38.8 145 26 133/89 94 Room Air 06/18/17 01:04 94 06/18/17 00:58 28 Room Air Physical Exam General Appearance: + pertinent finding (Intubated) Eyes: PERRL ENT: normal ENT inspection Neck: supple, + pertinent finding (Intubated) Respiratory/Chest: + decreased breath sounds, + rales Cardiovascular: regular rate, rhythm, no edema, no gallop, no JVD, no murmur Abdomen: normal bowel sounds, non tender, soft, no pulsatile mass Extremities: normal inspection, no pedal edema Neurologic/Psychiatric: + pertinent finding (Intubated not able to evaluation, no facial droop) Skin: normal color, warm/dry Laboratory Results Last 24 Hours Test 06/18/17 01:22 06/18/17 03:35 06/18/17 04:20 06/18/17 05:28 White Blood Count 15.62 K/uL Red Blood Count 4.59 M/uL Hemoglobin 15.0 g/dL Hematocrit 42.5 % Mean Corpuscular Volume 92.6 fL Mean Corpuscular Hemoglobin 32.7 pg Mean Corpuscular Hemoglobin Concent 35.3 g/dl Platelet Count 292 K/uL Mean Platelet Volume 10.0 fL Neutrophils (%) (Auto) 78.8 % Lymphocytes (%) (Auto) 12.5 % Monocytes (%) (Auto) 6.8 % Eosinophils (%) (Auto) 0.3 % Basophils (%) (Auto) 0.3 % Neutrophils # (Auto) 12.33 K/uL Lymphocytes # (Auto) 1.95 K/uL Monocytes # (Auto) 1.06 K/uL Eosinophils # (Auto) 0.04 K/uL Basophils # (Auto) 0.04 K/uL RDW Standard Deviation 42.4 fL RDW Coefficient of Variation 12.5 % Immature Granulocyte % (Auto) 1.3 % Immature Granulocyte # (Auto) 0.20 K/uL Sodium Level 139 mmol/L 140 mmol/L Potassium Level 3.4 mmol/L 3.6 mmol/L Chloride Level 104 mmol/L 110 mmol/L Carbon Dioxide Level 13 mmol/L 20 mmol/L Anion Gap 22.0 mmol/L 10.0 mmol/L Blood Urea Nitrogen 11 mg/dl 14 mg/dl Creatinine 1.97 mg/dl 1.10 mg/dl Estimated GFR () 54.3 109.9 Estimated GFR (Non- 46.9 94.8 BUN/Creatinine Ratio 5.5 12.6 Random Glucose 64 mg/dl 92 mg/dl Calcium Level 8.7 mg/dl 7.9 mg/dl Magnesium Level 3.1 mg/dl Total Bilirubin 0.5 mg/dl 0.8 mg/dl Direct Bilirubin 0.2 mg/dl Aspartate Amino Transf (AST/SGOT) 39 U/L 78 U/L Alanine Aminotransferase (ALT/SGPT) 32 U/L 36 U/L Alkaline Phosphatase 114 U/L 90 U/L Total Creatine Kinase 560 U/L 2611 U/L Total Protein 8.1 gm/dl 6.6 gm/dl Albumin 4.3 gm/dl 3.7 gm/dl Thyroid Stimulating Hormone (TSH) 2.290 uIu/ml Salicylates Level 3.1 mg/dl Acetaminophen Level < 2 ug/ml Ethyl Alcohol mg/dL 114.0 mg/dl Bedside Glucose 73 mg/dl Urine Opiates Screen NEG Urine Methadone, Qualitative NEG Urine Barbiturates NEG Urine Phencyclidine (PCP) Level POS Ur Amphetamine/Methamphetamine POS MDMA (Ecstasy) Screen POS Urine Benzodiazepines Screen POS Urine Cocaine Metabolite NEG Urine Marijuana (THC) NEG Est Creatinine Clear Calc Drug Dose 107.9 ml/min Osmolality 296 mOsm/kg Phosphorus Level 4.8 mg/dl Troponin I < 0.015 ng/ml Globulin 2.9 gm/dl Albumin/Globulin Ratio 1.3 Test 06/18/17 06:17 06/18/17 08:56 06/18/17 11:20 Blood Gas Sample Site R Brachial Bedside Blood Gas pH (LAB) 7.36 Bedside Blood Gas pCO2 (LAB) 41 mmHg Bedside Blood Gas pO2 (LAB) 140 mmHg Bedside Blood Gas HCO3 (LAB) 23 meq/L Bedside Blood Gas Total CO2 24 mEq/l Bedside Blood Gas Base Excess (LAB) -2.0 meq/L Bedside Blood Gas O2 Saturation 99.0 % Amos Test Pass Oxygen Delivery Device Ventilator Bedside Oxygen Rate (breaths/min) 14 Blood Gas Minute Ventilation 9.7 Bedside FiO2 40 % Blood Gas Tidal Volume 600 Blood Gas PEEP 5 White Blood Count 14.33 K/uL Red Blood Count 3.75 M/uL Hemoglobin 12.1 g/dL Hematocrit 34.6 % Mean Corpuscular Volume 92.3 fL Mean Corpuscular Hemoglobin 32.3 pg Mean Corpuscular Hemoglobin Concent 35.0 g/dl Platelet Count 184 K/uL Mean Platelet Volume 9.7 fL Neutrophils (%) (Auto) 63.9 % Lymphocytes (%) (Auto) 20.7 % Monocytes (%) (Auto) 14.4 % Eosinophils (%) (Auto) 0.5 % Basophils (%) (Auto) 0.1 % Neutrophils # (Auto) 9.16 K/uL Lymphocytes # (Auto) 2.96 K/uL Monocytes # (Auto) 2.07 K/uL Eosinophils # (Auto) 0.07 K/uL Basophils # (Auto) 0.01 K/uL RDW Standard Deviation 42.8 fL RDW Coefficient of Variation 12.7 % Immature Granulocyte % (Auto) 0.4 % Immature Granulocyte # (Auto) 0.06 K/uL Magnesium Level 2.6 mg/dl Bedside Glucose 115 mg/dl Assessment and Plan 21 y/o M admitted to ICU on June 18, 2017 because of Intoxication/combative behavior with a long-term history of ETOH abuse. per note: he had been wandering the [place] in an agitated and disoriented state. In the ER he remained combative and received 10mg of Midazolam and 10mg of Haldol were not entirely effective, oxygen saturation fell below 90% following a second dose of Midazolam, hIs continued agitation and borderline low oxygenation lead to a decision to intubate. Intoxication/combative behavior, now is intubated, Illicit drug abuse disorder with multiple illicit drug and positive screen: possibly synthetic THC hx ETOH abuse and alcohol intoxication upon admission, history of withdrawal seizures - Currently sedated - PRN Ativan provided Continue IV fluid, multiple vitamin, thiamine, folic acid, Currently intubated on vent support Acute kidney failure upon admission, which improved after IV fluid, Hypokalemia was replaced Elevated CK, from dehydration from the hospital, which is getting worse this morning, will continue follow-up total CK level Depression: We will continue Wellbutrin when awake Will continue vent support, IV fluids, supportive care, follow-up above- mentioned labs, may need psychiatry evaluation before discharge Full code -no hyperkeratotic, only SCDs due to trauma Continued [facility] stay due to: multiple IV medications needed Discharge planning: uncertain
[2017-06-18] MEDS ORDERED: GABAPENTIN 1200MG LOADING DOSE NG ONE (12:00)
--- NOTE | 2017-06-18 13:46 | Critical Care Progress Note ---
Critical Care Progress Note Date of Service Jun 18, 2017. Critical Care Progress Note Patient ready for extubation, following complex commands, lives at above bed, spontaneous minute ventilation 10 L tidal volume greater than 10 cc/kg.
[2017-06-18] MEDS ORDERED: DexMEDEtomidine HCL IV 200 MCG in SODIUM CHLORIDE 0.9% 50ML 48 ML IV PRN (15:05)
--- NOTE | 2017-06-18 15:23 | Critical Care Progress Note ---
Critical Care Progress Note Date of Service Jun 18, 2017. Critical Care Progress Note Notified by nursing staff that patient purposely removed his Serna with balloon intact. I asked him why he pulled his catheter out "I felt it was prudent to remove it" when asking the follow-up question if he still thought it was prudent after seeing the balloon that was still inflated on the end his response was "yeah it hurt, it felt like I was giving through my jarrod" I interviewed the patient and examined him. He is alert and oriented 3 Aware he is in the hospital. Understands he may have injured his urethra secondary to pulling out the catheter. Rather ambivalent about the possibility of serious injury. He is mildly tachycardic. He has normal external circumcised genitalia with mild bleeding and oozing at the urethral meatus. Impression: Possible urethral injury secondary to patient's self removal. Plan: If the patient is unable to urinate we will attempt to place another Serna catheter. If unable to will place an urgent consult to urology. Will likely require routine consult with urology tomorrow.
[2017-06-18] MEDS: GABAPENTIN 600MG Q6H DOSE NG SCH (17:58)
[2017-06-19] VITALS (9 sets, daily range): BP systolic 97–133; BP diastolic 47–71; PULSE 61–87; TEMP 36.6–37; O2SAT 97–100
[2017-06-19] MEDS: GABAPENTIN 600MG Q6H DOSE NG SCH
[2017-06-19 05:52] LABS: BASO % 0.2 %; BASO ABS # 0.02 K/uL (0-0.2); EOS % 1.6 %; EOS ABS # 0.19 K/uL (0-0.5); HEMATOCRIT 33.9 % (42-52); HEMOGLOBIN 11.6 g/dL (14.0-18.0); IG# 0.02 K/uL (0.00-0.02); LYMPH % 17.1 %; LYMPH ABS # 1.98 K/uL (1.2-3.4); MEAN CELL VOLUME 94.4 fL (80-100); MEAN CORPUSCULAR HEMOGLOBIN 32.3 pg (25-34); MEAN CORPUSCULAR HGB CONC 34.2 g/dl (32-36); MEAN PLATELET VOLUME 9.6 fL (7.4-10.4); MONO % 11.5 %; MONO ABS # 1.33 K/uL (0.11-0.59); NEUT % 69.4 %; NEUT ABS # 8.01 K/uL (1.4-6.5); PLATELET COUNT 166 K/uL (130-400); RED CELL DISTRIBUTION WIDTH CV 12.7 % (11.5-14.5); RED CELL DISTRIBUTION WIDTH SD 43.5 fL (36.4-46.3); WHITE BLOOD COUNT 11.55 K/uL (4.8-10.8)
[2017-06-19] MEDS: CHLORDIAZEPOXIDE 50MG 1ST DOSE PO SCH (06:00)
[2017-06-19 06:20] LABS: ALBUMIN 3.3 gm/dl (3.4-5.0); CALCIUM 8.3 mg/dl (8.5-10.1); CREATININE 0.94 mg/dl (0.60-1.40); POTASSIUM 3.7 mmol/L (3.5-5.1)
[2017-06-19 06:42] LABS: PHOSPHORUS 4.1 mg/dl (2.5-4.9); TOTAL PROTEIN 5.9 gm/dl (6.4-8.2)
[2017-06-19] MEDS ORDERED: GABAPENTIN 600MG Q8H DOSE NG SCH (08:00)
[2017-06-19] MEDS: FoLIC ACID INJ 1 MG in SYRINGE 9.8 ML IV SCH (08:55)
[2017-06-19] MEDS: MULTIVITAMIN TAB PO SCH (08:55)
[2017-06-19] MEDS ORDERED: THIAMINE HCL INJ 100 MG in SYRINGE 9 ML IV SCH (09:00)
[2017-06-19] MEDS ORDERED: PANTOprazole SOD 40 MG TAB PO SCH (09:00)
[2017-06-19] MEDS ORDERED: THIAMINE HCL 100 MG TAB PO SCH (09:00)
--- NOTE | 2017-06-19 09:23 | Clinical Documentation Query ---
CLINICAL DOCUMENTATION QUERY 21 year old male who presents to the Emergency Room hallucinating and combative. In your clinical opinion is this patient being managed for: ( x) Toxic encephalopathy in setting of polysubstance abuse. ( ) Not Agree ( ) Other explanation of clinical findings (Please Explain) ( ) Unable to determine (Please Define) ( ) Need to Discuss The medical record reflects the following clinical findings, treatment, and risk factors. Clinical Indicators: As above. Tox screen +Urine for PCP, Amphetamin/Meth, MDMA, and Benzodiazepines. ETOH 114. Treatment: Sedated and intubated for safety, ICU hemodynamic monitoring. Risk Factors: Polysubstance abuse Please clarify and document your clinical opinion in the progress notes and discharge summary. Terms such as "probable", "suspected", "likely", "questionable", "possible", or "still to be ruled out" are acceptable. IF IN AGREEMENT, YOU MUST DOCUMENT ABOVE DIAGNOSTIC STATEMENT IN DAILY PROGRESS NOTES AND DISCHARGE SUMMARY. This document is not part of the patient's record. Thank You, Carlos A Paez, EDMUNDO [phone]
--- NOTE | 2017-06-19 13:02 | Psychiatric Consultation ---
Psychiatric Consultation Date of Service: Jun 19, 2017. ID: Patient reviewed with liaison nurse. Pt record reviewed. 21-year-old male reportedly was brought to ED by police after being found in an agitated and disoriented state. Pt was combative both with the police and once brought to the ED. Pt was intubated and sedated and transported to ICU to prevent potential harm to self or others. Pt has a history of ETOH abuse since age 18. Psychiatric consult requested for "recurrent substance abuse, life threatening ". CC: "I tripped and fell, next thing I knew the character artist had me." HPI: Salo Oconnor is a 21-year-old male admitted to the ICU following police escort to the ED for "agitated and disoriented state". Pt was combative in the ED, but has since calmed down. Pt was seen on psychiatric consult service for "recurrent substance abuse, life threatening". Pt denies any substance use prior to coming to the hospital; however, emergency room visit notes states, "patient states he snorted Wellbutrin, took a bunch of Xanax , and did synthetic marijuana." Pt's BAL at presentation to the ED was 114. Tox screen positive for PCP, amphetamine, MDMA, and Benzos - relatively consistent with patient's earlier statement. Pt is unable to remember any events from the evening until he was tackled by police. At beginning of encounter, patient was rather lethargic and required frequent arousal to continue with interview. Pt reports to this provider that he felt he was to be taking Wellbutrin 300mg BID to "stay awake" as these moments of sedation have been happening often. Pt suddenly becomes alert and oriented retirement through encounter without any signs of sedation, speech much more clear. Pt denies suicide attempt by overdose, as he thought this was the dose discussed by his provider at [facility]. Pt does have a recorded substance abuse history, which he does not discuss with this provider. He does however admit to weekly therapy session with Severo Harkins, his D&A counselor. He denies interest in inpatient rehabilitation. Pt's language is very future oriented stating, "If it was a suicide attempt, I would absolutely tell you. I would need help then, because I really don't want to ." He states he would like to be discharged as he needs to finish homework for his classes. Pt reports he currently has "all As" this semester. Pt's substance abuse history is concerning; however, he is not reporting symptoms that would allow for inpatient commitment for mental health treatment. Pt denies depression or anxiety and states sleep is his only current concern. Pt denies SI/HI, A/V hallucinations, and other psychosis. Pt states he is not willing for voluntary admission to the mental health unit and would like to return home to "comfort my girlfriend and get some work done." Vital Signs - Last 24 hours: Date Time Temp Pulse Resp B/P (MAP) Pulse Ox O2 Delivery O2 Flow Rate FiO2 06/19/17 11:12 36.6 61 18 131/71 (91) 97 Room Air 06/19/17 11:11 Room Air 06/19/17 09:33 36.6 68 18 111/67 (82) 97 Room Air 06/19/17 07:30 Room Air 06/19/17 07:30 36.6 82 18 97/47 (64) 97 Room Air 06/19/17 06:00 36.8 61 16 118/64 (82) 99 Room Air 06/19/17 04:00 37.0 87 18 133/58 (83) 98 Room Air 06/19/17 04:00 98 Room Air 06/19/17 02:00 81 16 110/58 (75) 98 Room Air 06/19/17 00:01 72 16 129/53 (78) 100 Room Air 06/19/17 00:00 97 Room Air 06/18/17 22:00 89 16 126/58 (80) 95 Room Air 06/18/17 20:00 91 16 131/69 (89) 99 Nasal Cannula 2.0 06/18/17 20:00 100 Nasal Cannula 2.0 06/18/17 18:01 96 99/74 (82) 98 06/18/17 18:00 97 97 06/18/17 17:59 37.2 98 22 106/71 (83) 99 Nasal Cannula 2.0 06/18/17 17:01 100 106/71 (83) 96 06/18/17 17:00 102 96 06/18/17 16:01 102 129/82 (98) 98 06/18/17 16:00 101 100 06/18/17 16:00 37.2 109 22 129/82 (98) 95 Nasal Cannula 2.0 06/18/17 16:00 Mechanical Ventilator 40 06/18/17 15:38 89 122/63 (82) 98 06/18/17 15:00 103 91 06/18/17 14:45 111 133/67 (89) 93 06/18/17 14:01 108 109/70 (83) 97 06/18/17 14:00 109 97 06/18/17 14:00 37.2 109 22 109/70 (83) 97 Nasal Cannula 3.0 06/18/17 13:01 37.6 92 14 130/64 (86) 98 06/18/17 13:00 37.6 94 14 98 ROS: Psych: denies any psychiatric concerns Constitutional: denied Cardiovascular: denied GI: denied Neurologic: denied Remainder of 10 body systems also reviewed and denied other than noted above. Last 24 Hours - Labs Test 06/18/17 16:04 06/18/17 21:59 06/19/17 05:35 Bedside Glucose 108 mg/dl 104 mg/dl White Blood Count 11.55 K/uL Red Blood Count 3.59 M/uL Hemoglobin 11.6 g/dL Hematocrit 33.9 % Mean Corpuscular Volume 94.4 fL Mean Corpuscular Hemoglobin 32.3 pg Mean Corpuscular Hemoglobin Concent 34.2 g/dl Platelet Count 166 K/uL Mean Platelet Volume 9.6 fL Neutrophils (%) (Auto) 69.4 % Lymphocytes (%) (Auto) 17.1 % Monocytes (%) (Auto) 11.5 % Eosinophils (%) (Auto) 1.6 % Basophils (%) (Auto) 0.2 % Neutrophils # (Auto) 8.01 K/uL Lymphocytes # (Auto) 1.98 K/uL Monocytes # (Auto) 1.33 K/uL Eosinophils # (Auto) 0.19 K/uL Basophils # (Auto) 0.02 K/uL RDW Standard Deviation 43.5 fL RDW Coefficient of Variation 12.7 % Immature Granulocyte % (Auto) 0.2 % Immature Granulocyte # (Auto) 0.02 K/uL Sodium Level 137 mmol/L Potassium Level 3.7 mmol/L Chloride Level 105 mmol/L Carbon Dioxide Level 25 mmol/L Anion Gap 7.0 mmol/L Blood Urea Nitrogen 11 mg/dl Creatinine 0.94 mg/dl Est Creatinine Clear Calc Drug Dose 126.2 ml/min Estimated GFR () 132.9 Estimated GFR (Non- 114.6 BUN/Creatinine Ratio 11.5 Random Glucose 83 mg/dl Calcium Level 8.3 mg/dl Phosphorus Level 4.1 mg/dl Magnesium Level 2.2 mg/dl Total Bilirubin 1.2 mg/dl Direct Bilirubin 0.4 mg/dl Aspartate Amino Transf (AST/SGOT) 85 U/L Alanine Aminotransferase (ALT/SGPT) 40 U/L Alkaline Phosphatase 90 U/L Total Creatine Kinase 3317 U/L Total Protein 5.9 gm/dl Albumin 3.3 gm/dl Medications Administered in Last 24-Hours Medications (Trade) Dose Ordered Sig/Sophia Route Start Time Stop Time Status Last Admin Dose Admin Gabapentin (Neurontin) 600 mg Q8H NG 06/19/17 08:00 06/20/17 00:01 06/19/17 08:00 600 MG Dexmedetomidine HCl 200 mcg/ Sodium Chloride 50 ml @ 0 mls/hr Q0M PRN IV 06/18/17 15:05 06/19/17 08:06 DC 06/18/17 15:23 3.2 MLS/HR Pantoprazole Sodium (Protonix Tab) 40 mg QAM PO 06/19/17 09:00 07/19/17 08:59 06/19/17 08:55 40 MG Thiamine HCl (Vitamin B-1 Tab) 100 mg QAM PO 06/19/17 09:00 07/19/17 08:59 06/19/17 08:55 100 MG MSE: The patient presented as initially sedated and lethargic, but rapidly became alert and oriented during encounter. The patient was dressed in hospital gown. Eye contact was fair. No psychomotor restlessness or agitation was noted. Speech was normal in rate, rhythm, and volume. Affect was mood congruent. The patients mood appeared initially dull, but became euthymic once no longer showing lethargy. Thought processes were clear, coherent and goal directed without evidence of loose associations or flight of ideas. Thought content/perception was reality based without delusions. The patient denied suicidal and homicidal ideation. The patient denied hallucinations and did not appear to be responding to internal stimuli. Cognition was grossly intact with orientation to person, place and time. Fund of Knowledge/Intelligence were consistent with level of education. Insight and Judgement were fair. Imp: Presenting issue appears to be adverse reaction to recent Wellbutrin prescription. Unclear to what extent substances/alcohol played a role in this incident as reports differ from patient's relayed history. Pt is unable to remember any substance use recently, aside from "a little bit of alcohol". Would recommend drug and alcohol rehab if substance abuse is concerning, however patient cannot be committed to this setting. Pt declines inpatient rehab and is wanting to return back to school. Patient does not have a psychiatric history and based on encounter today, denies criteria that would make him a candidate for an inpatient behavioral health admission. Pt is reporting he desires to return home and catch up on school work. Pt states he meets with Severo Harkins, his therapist, weekly and that he plans to attend his session later this week. Due to lack of SI/HI, signs of psychosis, and no risk of immediate harm to self or others, outpatient follow-up is the least restrictive setting in which to continue therapy. Plan: - Pt currently involved with D&A weekly therapy sessions - Could likely benefit from inpatient rehab, however cannot be committed to this setting - Does not meet criteria for inpatient mental health treatment as he denies this was a suicide attempt. - Psychiatrically stable for discharge home when medically cleared and given approval from primary medical team. - Would likely benefit from sleep study after discharge as his behavior at this encounter and history provided is concerning for narcolepsy/hypersomnia. Dr. Ayala has personally been involved in the review of the above case and development of recommendations.
[2017-06-19] MEDS ORDERED: CHLORDIAZEPOXIDE 50MG Q8H DOSE PO SCH (14:00)
--- NOTE | 2017-06-19 14:06 | Discharge Instructions ---
Discharge Instructions Date of Service Jun 19, 2017. Admission Reason for Admission: Toxic encephalopathy due to Wellbutrin Discharge Discharge Diagnosis / Problem: Toxic encephalopathy due to Wellbutrin Discharge Goals Goal(s): Decrease discomfort, Improve function Activity Recommendations Activity Limitations: resume your previous activity . Instructions / Follow-Up Instructions / Follow-Up Medications: no further Wellbutrin Please make a follow up appointment with [facility] as soon as possible to discuss treatment options other than Wellbutrin. Please continue to go to drug and alcohol support classes. Continue to stay well hydrated, get lots of rest the next several days. Current Hospital Diet Patient's current hospital diet: Regular Diet Discharge Diet Recommended Diet: Regular Diet Pending Studies Studies pending at discharge: no Medical Emergencies . Who to Call and When: Medical Emergencies: If at any time you feel your situation is an emergency, please call 911 immediately. . Non-Emergent Contact Non-Emergency issues call your: Primary Care Provider Call Non-Emergent contact if: you have any medication questions . . "Provider Documentation" section prepared by Michele Kimball PA Drug Monitoring Program Search Results: no issues identified
[2017-06-19] MEDS ORDERED: ETOMIDATE 2 MG/ML 20 ML VIAL IV ONE (14:59)
[2017-06-19] MEDS ORDERED: ROCURONIUM BROMIDE 10 MG/ML 10 ML VIAL IV ONE (14:59)
--- NOTE | 2017-06-19 15:11 | Critical Care Progress Note ---
Critical Care Progress Note Date of Service Jun 19, 2017. Attending Dr. Dominguez Subjective The patient become more awake, following commands and answering questions, did not have any symptoms, no chest pain reported, minimal swelling in his hands related to the handcuffs placed earlier. The patient did not have any nausea or vomiting, good cough reflex, following commands and answering questions, he has been evaluated by the psych team. Objective Physical exam on 06/19/2017, vital signs are stable, S1-S2 regular rate and rhythm, distant breath sounds bilaterally, pectus excavatum was noted, abdomen is benign, no edema. Neurologically has no focal deficit. His laboratory and imaging were reviewed personally. Although his CPK was slightly elevated, responded to IV fluid. Patient oral intake was started. Assessment & Plan 1. Drug overdose thought to be related to amphetamines. Although the patient took high dose of Wellbutrin according to him. 2. Mild case of rhabdomyolysis related to #1. 3. History of alcoholism in the past and drug abuse. Plan: 1. The patient is following commands and answering questions and can be evaluated by psych service. 2. Appreciate psych service input. The patient was psychiatrically and medically clear to be discharged home where he wants to go home. Did not qualify for inpatient psych admission. 3. The patient was advised to follow-up with his counseling. 4. The patient also was advised to change his medication from Wellbutrin to Provigil which will work for his hypersomnolence. 5. All his labs has been reviewed prior to his discharge. 6. Encouraged to take oral intake may be oral fluid. 7. Follow-up with his counselor as an outpatient. Case discussed with the staff on rounds and details. Critical care time spent with the patient was 35 minutes. Data Medications: Current Inpatient Medications Medications (Trade) Dose Ordered Sig/Sophia Route Start Time Stop Time Status Last Admin Dose Admin Acetaminophen (Tylenol Tab) 650 mg Q4H PRN PO 06/18/17 03:15 07/18/17 03:14 Al Hydrox/Mg Hydrox/Simethicone (Maalox Max Susp) 15 ml Q4H PRN PO 06/18/17 03:15 07/18/17 03:14 Magnesium Hydroxide (Milk Of Magnesia Susp) 30 ml Q12H PRN PO 06/18/17 03:15 07/18/17 03:14 Ondansetron HCl (Zofran Inj) 4 mg Q6H PRN IV 06/18/17 03:15 07/18/17 03:14 Polyethylene (Miralax Powder Packet) 17 gm DAILY PRN PO 06/18/17 03:15 07/18/17 03:14 Lorazepam (Ativan Inj) 2 mg Q2H PRN IV 06/18/17 03:15 07/18/17 03:14 Folic Acid 1 mg/ Syringe 10 ml @ 5 mls/min QAM IV 06/18/17 09:00 07/18/17 08:59 06/19/17 08:55 5 MLS/MIN Miscellaneous Information (Icu Protocol For Hyperglycemia) 1 ea PRN PRN N/A 06/18/17 04:15 06/20/17 04:14 Multivitamins (Multivitamin Tab) 1 tab QAM PO 06/18/17 09:00 07/18/17 08:59 06/19/17 08:55 1 TAB Chlordiazepoxide (Librium Cap) 50 mg Q8H PO 06/19/17 14:00 06/20/17 06:01 Chlordiazepoxide (Librium Cap) 25 mg Q8H PO 06/20/17 14:00 06/21/17 06:01 Chlordiazepoxide (Librium Cap) 10 mg Q12H PO 06/21/17 18:00 06/22/17 06:01 Gabapentin (Neurontin) 600 mg Q8H NG 06/19/17 08:00 06/20/17 00:01 06/19/17 08:00 600 MG Gabapentin (Neurontin) 600 mg Q12H NG 06/20/17 12:00 06/21/17 00:01 Gabapentin (Neurontin) 600 mg Q24H NG 06/22/17 00:00 06/22/17 00:01 Pantoprazole Sodium (Protonix Tab) 40 mg QAM PO 06/19/17 09:00 07/19/17 08:59 06/19/17 08:55 40 MG Thiamine HCl (Vitamin B-1 Tab) 100 mg QAM PO 06/19/17 09:00 07/19/17 08:59 06/19/17 08:55 100 MG I & O: 24-Hour Column 06/20/17 07:59 Intake Total 850 ml Balance 850 ml Vital Signs: Date Time Temp Pulse Resp B/P (MAP) Pulse Ox O2 Delivery O2 Flow Rate FiO2 06/19/17 14:18 36.6 61 18 97 Room Air 06/19/17 11:12 36.6 61 18 131/71 (91) 97 Room Air 06/19/17 11:11 Room Air 06/19/17 09:33 36.6 68 18 111/67 (82) 97 Room Air 06/19/17 08:00 Room Air 06/19/17 07:30 Room Air 06/19/17 07:30 36.6 82 18 97/47 (64) 97 Room Air 06/19/17 06:00 36.8 61 16 118/64 (82) 99 Room Air 06/19/17 04:00 37.0 87 18 133/58 (83) 98 Room Air 06/19/17 04:00 98 Room Air 06/19/17 02:00 81 16 110/58 (75) 98 Room Air 06/19/17 00:01 72 16 129/53 (78) 100 Room Air 06/19/17 00:00 97 Room Air 06/18/17 22:00 89 16 126/58 (80) 95 Room Air 06/18/17 20:00 91 16 131/69 (89) 99 Nasal Cannula 2.0 06/18/17 20:00 100 Nasal Cannula 2.0 06/18/17 18:01 96 99/74 (82) 98 06/18/17 18:00 97 97 06/18/17 17:59 37.2 98 22 106/71 (83) 99 Nasal Cannula 2.0 06/18/17 17:01 100 106/71 (83) 96 06/18/17 17:00 102 96 06/18/17 16:01 102 129/82 (98) 98 06/18/17 16:00 101 100 06/18/17 16:00 37.2 109 22 129/82 (98) 95 Nasal Cannula 2.0 06/18/17 16:00 Mechanical Ventilator 40 06/18/17 15:38 89 122/63 (82) 98 06/18/17 15:00 103 91 06/18/17 14:45 111 133/67 (89) 93 Laboratory Results: Last 24 Hours Test 06/18/17 16:04 06/18/17 21:59 06/19/17 05:35 Bedside Glucose 108 mg/dl 104 mg/dl White Blood Count 11.55 K/uL Red Blood Count 3.59 M/uL Hemoglobin 11.6 g/dL Hematocrit 33.9 % Mean Corpuscular Volume 94.4 fL Mean Corpuscular Hemoglobin 32.3 pg Mean Corpuscular Hemoglobin Concent 34.2 g/dl Platelet Count 166 K/uL Mean Platelet Volume 9.6 fL Neutrophils (%) (Auto) 69.4 % Lymphocytes (%) (Auto) 17.1 % Monocytes (%) (Auto) 11.5 % Eosinophils (%) (Auto) 1.6 % Basophils (%) (Auto) 0.2 % Neutrophils # (Auto) 8.01 K/uL Lymphocytes # (Auto) 1.98 K/uL Monocytes # (Auto) 1.33 K/uL Eosinophils # (Auto) 0.19 K/uL Basophils # (Auto) 0.02 K/uL RDW Standard Deviation 43.5 fL RDW Coefficient of Variation 12.7 % Immature Granulocyte % (Auto) 0.2 % Immature Granulocyte # (Auto) 0.02 K/uL Sodium Level 137 mmol/L Potassium Level 3.7 mmol/L Chloride Level 105 mmol/L Carbon Dioxide Level 25 mmol/L Anion Gap 7.0 mmol/L Blood Urea Nitrogen 11 mg/dl Creatinine 0.94 mg/dl Est Creatinine Clear Calc Drug Dose 126.2 ml/min Estimated GFR () 132.9 Estimated GFR (Non- 114.6 BUN/Creatinine Ratio 11.5 Random Glucose 83 mg/dl Calcium Level 8.3 mg/dl Phosphorus Level 4.1 mg/dl Magnesium Level 2.2 mg/dl Total Bilirubin 1.2 mg/dl Direct Bilirubin 0.4 mg/dl Aspartate Amino Transf (AST/SGOT) 85 U/L Alanine Aminotransferase (ALT/SGPT) 40 U/L Alkaline Phosphatase 90 U/L Total Creatine Kinase 3317 U/L Total Protein 5.9 gm/dl Albumin 3.3 gm/dl
--- NOTE | 2017-06-20 08:44 | Discharge Summary ---
Discharge Summary Date of Service Jun 19, 2017. Discharge Summary Admission Date: Jun 18, 2017 at 04:06 Discharge Date: Jun 19, 2017 Discharge Disposition: Home Principal Diagnosis: Toxic encephalopathy due to Wellbutrin Problems/Secondary Diagnoses: Alcohol intoxication Insomnia Procedures: Intubated Consultations: Critical care Psychiatry Medication Reconciliation Medication Profile: Unable to Obtain Active Prescriptions or Reported Meds Discharge Exam Patient feeling well in the morning on 06/19. He was extubated on 06/18, no issues with breathing. He did pull out his lorenzo catheter, caused some urethral trauma and bleeding. He was able to void 800cc in the morning on , no further bleeding. Eating well, no complaints of pain. Evaluated by psychiatry, recommended patient consider drug/alcohol rehab but he did not want to consider at this time. He did not meet criteria for inpatient psychiatric care, certainly did not meet involuntary commitment criteria. He wanted to go home to complete school work, study. He was committed to following up with [facility], did not want to take Wellbutrin again. Review of Systems: Constitutional: + weakness, + fatigue, No fever, No chills, No sweats, No weight loss, No problem reported Eyes: No worsening of vision, No eye pain, No redness, No discharge, No diplopia, No problem reported ENT: No hearing loss, No unusual epistaxis, No nasal symptoms, No sore throat, No tinnitus, No dental problems, No trouble swallowing, No problem reported Respiratory: No cough, No sputum, No wheezing, No shortness of breath, No dyspnea on exertion, No dyspnea at rest, No hemoptysis, No problem reported Cardiovascular: No chest pain, No orthopnea, No PND, No edema, No claudication, No palpitations, No problem reported Abdomen: No pain, No nausea, No vomiting, No diarrhea, No constipation, No GI bleeding, No problem reported Musculoskeletal: No joint pain, No muscle pain, No swelling, No calf pain, No problem reported Genitourinary - Male: No hematuria, No dysuria, No urinary frequency, No urinary urgency Neurologic: No memory loss, No paralysis, No weakness, No numbness/tingling , No vertigo, No balance problems, No problem reported Psychiatric: + anxiety, + insomnia, + substance abuse, No depression symptoms, No anhedonism, No problem reported Endocrine: No fatigue, No excessive thirst, No excessive urination, No problem reported Hematologic / Lymphatic: No abnormal bleeding/bruising, No clotting problems , No swollen lymph nodes, No night sweats, No problem reported Integumentary: No rash, No itch, No new/changing skin lesions, No color change, No bleeding, No problem reported Physical Exam: General Appearance: WD/WN, no apparent distress Eyes: normal inspection, EOMI, sclerae normal ENT: normal ENT inspection, hearing grossly normal, pharynx normal Neck: supple, no adenopathy, no JVD, trachea midline Respiratory/Chest: chest non-tender, lungs clear, normal breath sounds, no respiratory distress, no accessory muscle use Cardiovascular: regular rate, rhythm, no edema, no gallop, no JVD, no murmur , normal peripheral pulses Abdomen / GI: normal bowel sounds, non tender, soft, no organomegaly Extremities: normal inspection, no calf tenderness, normal capillary refill , no pedal edema, normal range of motion, pelvis stable Neurologic/Psychiatric: decator operator II-XII nml as tested, no motor/sensory deficits , alert, normal mood/affect, normal reflexes, oriented x 3 Skin: normal color, warm/dry, no rash Hospital Course 21 y/o M admitted to ICU on June 18, 2017 because of Intoxication/combative behavior with a long-term history of ETOH abuse since age 18, he had been wandering the downtown in an agitated and disoriented state, brought to the ED after he was violent with police. In the ER he remained combative and received 10mg of Midazolam and 10mg of Haldol were not entirely effective, oxygen saturation fell below 90% following a second dose of Midazolam, hIs continued agitation and borderline low oxygenation lead to a decision to intubate. Toxic encephalopathy due to drug intoxication, alcohol intoxication intubated to protect airway, extubated on 06/18, no complications, breathing well on room air urine toxicology screen positive for PCP, amphetamine, benzodiazepines, MDMA admitted to taking Wellbutrin, benzos, possible synthetic marijuana, alcohol treated with supportive care with Librium, IV fluids no withdrawal symptoms or seizures vitals stable, oriented x 3 on the day of discharge refused to consider drug/alcohol inpatient rehab, says he goes to drug/ alcohol support groups SHARDA: Cr was 1.9 on admission, resolved over two days with IV fluids, Cr down to 0.9 on day of discharge likely combination of drug intoxication, dehydration Traumatic lorenzo removal, hematuria voiding several times without difficulty after removing lorenzo he will continue to monitor at home no further bleeding Hypokalemia: resolved with replacement Elevated CK: due to trauma, drug intoxication no muscle pain Depression, insomnia: was prescribed Wellbutrin, was not taking appropriately patient feels that his symptoms were due to taking too much Wellbutrin he will not take any further medication on discharge plans to follow up closely with [facility] to discuss other options recommend that he be referred to psychiatry through the [facility] Total Time Spent: Greater than 30 minutes This includes examination of the patient, discharge planning, medication reconciliation, and communication with other providers. Discharge Instructions Please refer to the electronic Patient Visit Report (Discharge Instructions) for additional information. Follow-Up [facility] in one week Additional Copies To [facility]
[2017-06-20] MEDS ORDERED: GABAPENTIN 600MG Q12H DOSE NG SCH (12:00)
--- NOTE | 2017-06-20 13:04 | EDITING REQUIRED CODING QUERY ---
CODING QUERY To promote full compliance with coding requirements relating to patient care, provider participation is requested in all cases of office communication professor uncertainty. Please assist us with the question(s) below: Please clarify the meaning of SHARDA. SHARDA is not a valid abbreviation. Thank you. ( x ) Acute Kidney Injury ( ) Acute Kidney Insufficiency ( ) Other (Specify): Principal Diagnosis: "_that condition established after study, to be chiefly responsible for occasioning the admission of the patient to the hospital for care." Co-Existing Principal Diagnosis: "_when two or more diagnoses equally meet the criteria for principal diagnosis as determined by the circumstances of admission, diagnostic work up, and/or therapy provided, and the Alphabetic Index, Tabular List, or another coding guideline does not provide sequencing direction, any one of the diagnoses may be sequenced first." "When the physician has documented what appears to be a current diagnosis in the body of the record, but has not included the diagnosis in the final diagnostic statement, the physician should be asked whether the diagnosis should be added." (Source [facility]oding [facility] 2 QTR90. p3-4)
[2017-06-20] MEDS ORDERED: CHLORDIAZEPOXIDE 25MG Q8H DOSE PO SCH (14:00)
[2017-06-21] MEDS ORDERED: CHLORDIAZEPOXIDE 10MG Q12H DOSE PO SCH (18:00)
[2017-06-22] MEDS ORDERED: GABAPENTIN 600MG X1 DOSE NG SCH
== END 2017-06-19 15:00 | disposition home or self-care (01) | DRG 896 ==
LOC: C.EDA 01:07 → EDBEDREQSVC 03:32 → ENRESERV 03:43 → C.MSICU 04:06
PROVIDERS: ADMIT Internal Medicine; ATTEND Internal Medicine
PROC: 0BH13EZ Insertion of Endotracheal Airway into Trachea, Percutaneous Approach (ICD-10-PCS; principal; 2017-06-18)
DX: F19.129 Other psychoactive substance abuse with intoxication, unspecified (principal); G92 Toxic encephalopathy; E87.2 Acidosis; S37.30XA Unspecified injury of urethra, initial encounter; N17.9 Acute kidney failure, unspecified; D72.829 Elevated white blood cell count, unspecified; F10.129 Alcohol abuse with intoxication, unspecified; F32.9 Major depressive disorder, single episode, unspecified; E87.6 Hypokalemia; E83.41 Hypermagnesemia; T43.295A Adverse effect of other antidepressants, initial encounter; X58.XXXA Exposure to other specified factors, initial encounter